=== PATIENT | female | born 1990 | race Caucasian/White ===

== ENCOUNTER 2024-12-21 21:35 | Emergency (ER) | payer BC | END 2024-12-21 23:23 | disposition home or self-care (01) | LOC: MW.ED 21:35 | DX: R07.89 Other chest pain (principal); R06.02 Shortness of breath; J45.909 Unspecified asthma, uncomplicated; Z20.828 Contact with and (suspected) exposure to other viral communicable diseases; Z71.1 Person with feared health complaint in whom no diagnosis is made; Z75.8 Other problems related to medical facilities and other health care; Z79.899 Other long term (current) drug therapy; Z79.890 Hormone replacement therapy | CPT/HCPCS: 71046; 71046-26; 87428-QW; 93005; 93010; 99285 ==